=== PATIENT | female | born 1965 | race Caucasian/White ===

== ENCOUNTER 2017-05-01 10:06 | Emergency (ER) | payer OTHER ==
[2017-05-01 10:22] VITALS: BP 125/57; PULSE 79; TEMP 98.7; BMI 36.6
--- NOTE | 2017-05-01 10:41 | PDOC ---
Attending Attestation - Resident Resident Name: Dave Mcbride - ED Attending Attestation I have performed the following: I have examined & evaluated the patient, The case was reviewed & discussed with the resident, I agree w/resident's findings & plan, Exceptions are as noted - HPI HPI: 52 yo F history perirectal abscess drained in [place] ~20 years ago presents with pain in the same location. No swelling, no drainage, no fever. Denies abdominal pain. - Physicial Exam PE: GENERAL: Awake, alert, and fully oriented, in no acute distress HEAD: No signs of trauma EYES: PERRLA, EOMI, sclera anicteric, conjunctiva clear ENT: Auricles normal inspection, hearing grossly normal, nares patent, oropharynx clear without exudates. Moist mucosa NECK: Normal ROM, supple, no lymphadenopathy, JVD, or masses LUNGS: Breath sounds equal, clear to auscultation bilaterally. No wheezes, and no crackles HEART: Regular rate and rhythm, normal S1 and S2, no murmurs, rubs or gallops ABDOMEN: Soft, nontender, normoactive bowel sounds. No guarding, no rebound. No masses EXTREMITIES: Normal range of motion, no edema. No clubbing or cyanosis. No cords, erythema, or tenderness NEUROLOGICAL: Cranial nerves II through XII grossly intact. Normal speech, normal gait SKIN: Warm, Dry, normal turgor, no rashes or lesions noted. RECTAL: L buttock with well-healed scar, no erythema, no induration, no swelling , no drainage. - Medical Decision Making Pt with pain to prior abscess drainage site. The area does not appear infected on exam. There is no erythema, swelling, induration. Likely there is a chronic pocket that may have small amt fluid. Bedside sono shows no drainable collection. Will DC with pain control and surgical f/u.
--- NOTE | 2017-05-01 10:42 | PDOC ---
History of Present Illness - General Chief Complaint: Abscess Boil Stated Complaint: ABSCESS BOIL Time Seen by Provider: 05/01/17 10:37 - History of Present Illness Initial Comments: 05/01/17 11:12 Ms. Turner is a 52 yo female w/ pmh of DM on metformin only who presents c/o a 4 day history of perirectal abscess. She reports she had this once 20-25 years ago in a similar location that she had to have drained in the OR. She initially thought it was a hemorrhoid but presented when she realized this was not the case. The patient denies chest pain, shortness of breath, headache and dizziness. Denies fever, chills, nausea, vomit, diarrhea and constipation. Denies dysuria, frequency, urgency and hematuria. Allergies: NKDA Past History - Past Medical History Allergies/Adverse Reactions: Allergies Allergy/AdvReac Type Severity Reaction Status Date / Time No Known Allergies Allergy Verified 05/01/17 10:19 Home Medications: Ambulatory Orders Ibuprofen [Motrin -] 600 mg PO TID #21 tablet 05/01/17 Metformin HCl [Glucophage] 1,000 mg PO BID 05/01/17 COPD: No Diabetes: Yes - Immunization History Immunization Up to Date: Yes - Suicide/Smoking/Psychosocial Hx Smoking History: Never smoked Have you smoked in the past 12 months: No Information on smoking cessation initiated: No Hx Alcohol Use: No Drug/Substance Use Hx: No Review of Systems - Review of Systems Comments:: 05/01/17 11:14 GENERAL/CONSTITUTIONAL: No fever or chills. No weakness. HEAD, EYES, EARS, NOSE AND THROAT: No change in vision. No ear pain or discharge. No sore throat. CARDIOVASCULAR: No chest pain or shortness of breath RESPIRATORY: No cough, wheezing, or hemoptysis. GASTROINTESTINAL: No nausea, vomiting, diarrhea or constipation. GENITOURINARY: No dysuria, frequency, or change in urination. MUSCULOSKELETAL: No joint or muscle swelling or pain. No neck or back pain. SKIN: No rash NEUROLOGIC: No headache, vertigo, loss of consciousness, or change in strength/ sensation. ENDOCRINE: No increased thirst. No abnormal weight change HEMATOLOGIC/LYMPHATIC: No anemia, easy bleeding, or history of blood clots. ALLERGIC/IMMUNOLOGIC: No hives or skin allergy. *Physical Exam - Vital Signs Last Vital Signs Temp Pulse Resp BP Pulse Ox 98.7 F 79 16 125/57 97 05/01/17 10:19 05/01/17 10:19 05/01/17 10:19 05/01/17 10:19 05/01/17 10:19 - Physical Exam Comments: 05/01/17 11:15 GENERAL: Awake, alert, and fully oriented, in no acute distress HEAD: No signs of trauma, normocephalic, atraumatic EYES: PERRLA, EOMI, sclera anicteric, conjunctiva clear ENT: Auricles normal inspection, hearing grossly normal, nares patent, oropharynx clear without exudates. Moist mucosa NECK: Normal ROM, supple, no lymphadenopathy, JVD, or masses LUNGS: No distress, speaks full sentences, clear to auscultation bilaterally HEART: Regular rate and rhythm, normal S1 and S2, no murmurs, rubs or gallops, peripheral pulses normal and equal bilaterally. ABDOMEN: Soft, nontender, normoactive bowel sounds. No guarding, no rebound. No masses EXTREMITIES: Normal inspection, Normal range of motion, no edema. No clubbing or cyanosis. NEUROLOGICAL: Cranial nerves II through XII grossly intact. Normal speech, normal gait, no focal sensorimotor deficits SKIN: Warm, Dry, normal turgor, no rashes or lesions noted. RECTAL: No hemmorhoids noted. Scar noted aproximately 8 cm laterally to left of rectum. Approximate 5cm diameter chronic appearing inflammed area noted beneath scarred area. No erythema noted. Tender to palpation at site. ED Treatment Course - LABORATORY CBC & Chemistry Diagram: 05/01/17 11:00 05/01/17 11:00 Medical Decision Making - Medical Decision Making 05/01/17 12:42 Unable to appreciate fluctuant mass by palpation - unable to appreciate collection on ultrasound. Believe this to be chronic issue as location is at site of previous drainage. Will refer to surgery for follow-up and provide interim pain control. *DC/Admit/Observation/Transfer Diagnosis at time of Disposition: Perirectal discomfort - Discharge Dispostion Disposition: HOME - Prescriptions Prescriptions: Ibuprofen [Motrin -] 600 mg PO TID #21 tablet - Referrals - Patient Instructions Printed Discharge Instructions: DI for Anal Abscess - Post Discharge Activity
[2017-05-01] MEDS ORDERED: SODIUM CHLORIDE 1,000 ML IV ONE (11:09)
[2017-05-01 11:12] LABS: BASOPHIL 0.3 % (0-2.0); EOSINOPHIL 0.7 % (0-4.5); MCH 26.2 pg (25.7-33.7); MCHC 32.7 g/dl (32.0-36.0); MEAN CELL VOLUME 79.9 fl (80-96); MEAN PLT VOLUME 8.5 fl (7.5-11.1); NEUTROPHILS 73.3 % (42.8-82.8); PLATELET COUNT 242 K/MM3 (134-434); RDW 14.1 % (11.6-15.6); WHITE BLOOD COUNT 9.8 K/mm3 (4.0-10.0)
[2017-05-01 11:28] LABS: INR 1.15 (0.82-1.09)
[2017-05-01 11:30] LABS: ACTIVATED PTT 26.4 SECONDS (26.9-34.4)
[2017-05-01 11:39] LABS: ALBUMIN 3.5 g/dl (3.4-5.0); ALK PHOS 91 U/L (45-117); ANION GAP 8 (8-16); BILIRUBIN,TOTAL 0.5 mg/dL (0.2-1.0); CALCIUM 8.7 mg/dL (8.5-10.1); CO2 26 mmol/L (21-32); CREATININE 0.7 mg/dL (0.55-1.02); GLUCOSE,RANDOM 170 mg/dL (74-106); SGOT/AST 21 U/L (15-37); SGPT/ALT 29 U/L (12-78)
[2017-05-01] MEDS ORDERED: IBUPROFEN 400 MG TABLET (FP) PO ONE ×2 (11:48→12:18)
[2017-05-01] MEDS ORDERED: MAGNESIUM CITRATE 300 ML BOTTLE ONE (13:46)
[2017-05-01] MEDS ORDERED: MAGNESIUM CITRATE 300 ML BOTTLE PO ONE (13:46)
== END 2017-05-01 13:48 | disposition home or self-care (01) ==
LOC: JER 10:06
DX: K62.89 Other specified diseases of anus and rectum (principal)
CPT/HCPCS: 36415; 80053; 83605; 84703; 85025; 85610; 85730; 86850; 86900; 86901; 99284-25

== ENCOUNTER 2017-06-02 21:23 | Emergency (ER) | payer OTHER ==
[2017-06-02 21:37] VITALS: BP 78/41; PULSE 98; TEMP 97.8; BMI 42.6
--- NOTE | 2017-06-02 23:30 | PDOC ---
History of Present Illness - General Chief Complaint: Pain Stated Complaint: CONSTIPATION Time Seen by Provider: 06/02/17 23:21 - History of Present Illness Initial Comments: 06/02/17 23:42 The patient is a 52 year old female with a history of DM and rectal abscesses who presents for evaluation of constipation. The patient reports having a rectal abscess drained 2 weeks prior to presentation. Since then, she has been taking percocet for pain management, but stopped taking her colace due to the medication "not working." She states that her family then tried a fleet enema, but was unable to administer it. She reports some generalized abdominal discomfort, but denies any nausea or vomiting and reports sufficient PO intake. She denies fevers, chills, chest pain, SOB, or changes with urination. Past History - Past Medical History Allergies/Adverse Reactions: Allergies Allergy/AdvReac Type Severity Reaction Status Date / Time No Known Allergies Allergy Verified 06/02/17 21:31 Home Medications: Ambulatory Orders Metformin HCl [Glucophage] 1,000 mg PO BID 05/01/17 COPD: No Diabetes: Yes - Immunization History Immunization Up to Date: Yes - Suicide/Smoking/Psychosocial Hx Smoking History: Never smoked Have you smoked in the past 12 months: No Information on smoking cessation initiated: No Hx Alcohol Use: No Drug/Substance Use Hx: No Substance Use Type: None Review of Systems - Review of Systems Comments:: 06/02/17 23:53 Constitutional: No fevers, chills, fatigue, malaise HEENT: No Rhinorrhea, nasal congestion, visual changes Cardiovascular: No chest pain, syncope, palpitations, lightheadedness Respiratory: No Cough, SOB, Hemoptysis, Gastrointestinal: Abdominal discomfort, constipation. No Nausea, Vomiting, Diarrhea, Melena Genitourinary: No Dysuria, Frequency, Urgency, Hesitancy, Hematuria, Flank pain Musculoskeletal: No Myalgia, arthralgia Skin: No rashes, bruising, pallor Neurologic: No Headache, Dizziness, Numbness, Weakness, or Tingling Psychiatric: No Hallucinations. No SI or HI *Physical Exam - Vital Signs Last Vital Signs Temp Pulse Resp BP Pulse Ox 97.8 F 98 H 20 78/41 98 06/02/17 21:32 06/02/17 21:32 06/02/17 21:32 06/02/17 21:32 06/02/17 21:32 - Physical Exam Comments: 06/02/17 23:54 General Appearance: Nourished. No Apparent Distress HEENT: EOMI, RENATA. No Pharyngeal Erythema, Tonsillar Exudate, Tonsillar Erythema Neck: No Cervical Lymphadenopathy Respiratory/Chest: Lungs Clear, Normal Breath Sounds. No Crackles, Rales, Rhonchi, Wheezing Cardiovascular: Regular Rhythm, Regular Rate. No Murmur, Gallops, Rubs Gastrointestinal/Abdominal: Normal Bowel Sounds, Soft. No Guarding, Rebound, Tenderness Musculoskeletal: No CVA Tenderness Extremity: Normal Capillary Refill Integumentary: Normal Color, Dry, Warm Neurologic: Fully Oriented, Alert, Normal Mood/Affect, Normal Response, Medical Decision Making - Medical Decision Making 06/02/17 23:54 The patient is a 52 year old female with a history of DM and rectal abscesses who presents for evaluation of constipation. Given the patient's normal physical exam and history of constipation, it is likely the patient's symptoms are due to constipation from her pain medication. It is unlikely the patient is obstructed given her lack of vomiting and normal physical exam. We will treat the patient with lactulose and a SSE. We will continue to monitor and reassess. 06/03/17 01:34 Patient reports improvement in her symptoms after having a bowel movement here in the ED. We are comfortable discharging the patient home at this time with primary care provider follow up. We discussed the plan with the patient who voiced understanding and is agreeable with the plan. *DC/Admit/Observation/Transfer Diagnosis at time of Disposition: Constipation Qualifiers: Constipation type: unspecified constipation type Qualified Code(s): K59.00 - Constipation, unspecified - Discharge Dispostion Disposition: HOME Condition at time of disposition: Improved Admit: No - Referrals Referrals: Becca Buenrostro MD [Primary Care Provider] - - Patient Instructions Printed Discharge Instructions: DI for Constipation Additional Instructions: Please return to the ER if you experience concerning or worsening symptoms including vomiting, fevers, or worsening pain. You were seen in the ER for constipation. Please continue to take your stool softener at home to help manage your constipation. It is important that you call to schedule a follow up appointment with your primary care provider to discuss management of your symptoms in the next 2-3 days. Print Language: WELSH - Post Discharge Activity
--- NOTE | 2017-06-02 23:32 | PDOC ---
Attending Attestation - HPI HPI: 06/02/17 23:40 52 y.o female with significant PMHx of DM and recent perirectal abscess drainage 2 weeks ago, who presents to the emergency room complaining of 6 days of constipation. Pt states that she stopped taking Colace, but continued to take the percocet. Denies nausea, vomiting. <Polly Aguilar - Last Filed: 06/02/17 23:40> - Resident Resident Name: Leonardo Conrad - ED Attending Attestation I have performed the following: I have examined & evaluated the patient, The case was reviewed & discussed with the resident, I agree w/resident's findings & plan, Exceptions are as noted - Physicial Exam PE: 06/02/17 23:36 Physical Exam General Appearance: Yes: Appropriately Dressed. No: Apparent Distress, Intoxicated HEENT: positive: EOMI, RENATA, Normal ENT Inspection, Normal Voice, TMs Normal, Pharynx Normal. negative: Pale Conjunctivae, Photophobia, Scleral Icterus (R), Scleral Icterus (L) Neck: positive: Trachea midline, Normal Thyroid, Supple. negative: Tender, Rigid, Carotid bruit, Stridor, Lymphadenopathy (R), Lymphadenopathy (L), Thyromegaly Respiratory/Chest: positive: Lungs Clear, Normal Breath Sounds. negative: Chest Tender, Respiratory Distress, Accessory Muscle Use, Labored Respiration, RES, Crackles, Rales, Rhonchi, Stridor, Wheezing, Dullness Cardiovascular: positive: Regular Rhythm, Regular Rate, S1, S2. negative: Edema , JVD, Murmur, Bradycardia, Tachycardia Vascular Pulses: Dorsalis-Pedis (R): 2+, Doralis-Pedis (L): 2+ Gastrointestinal/Abdominal: positive: Normal Bowel Sounds, Flat, Soft. negative : Tender, Organomegaly, Pulsatile Mass, Increased Bowel Sounds, Decreased BS, Distended, Guarding, Rebound, Hernia, Hepatomegaly, Spleenomegaly Lymphatic: negative: Adenopathy, Tenderness Musculoskeletal: positive: Normal Inspection. negative: CVA Tenderness, Decreased Range of Motion Extremity: positive: Normal Capillary Refill, Normal Inspection, Normal Range of Motion, Pelvis Stable. negative: Tender, Pedal Edema, Swelling, Erythema Integumentary: positive: Normal Color, Dry, Warm. negative: Cyanotic, Erythema , Jaundice, Rash Neurologic: positive: implementation analyst II-XII NML intact, Fully Oriented, Alert, Normal Mood/ Affect, Motor Strength 5/5. negative: EOM Palsy, Facial Droop, Sensory Deficit - Medical Decision Making 06/03/17 19:41 pt treated and released <Luis Felipe Mercer - Last Filed: 06/03/17 19:41>
[2017-06-02] MEDS ORDERED: LACTULOSE 20 GM/30 ML UDC (FOR ORAL USE ONLY) PO ONE (23:35)
[2017-06-02] MEDS ORDERED: LACTULOSE 20 GM/30 ML UDC (FOR ORAL USE ONLY) ONE (23:54)
== END 2017-06-03 02:09 | disposition home or self-care (01) ==
LOC: JER 21:23
DX: K59.00 Constipation, unspecified (principal); E11.9 Type 2 diabetes mellitus without complications
CPT/HCPCS: 99283-25